=== PATIENT | male | born 1940 | race Asian ===

== ENCOUNTER 2019-03-27 14:28 | Outpatient (CLI) | payer MEDICARE | END 2019-03-27 14:29 | disposition home or self-care (01) | LOC: ULT 14:28 | PROVIDERS: ATTEND Family Medicine | DX: R06.02 Shortness of breath (principal); I08.1 Rheumatic disorders of both mitral and tricuspid valves | CPT/HCPCS: 93306 ==

== ENCOUNTER 2019-04-17 11:01 | Outpatient (CLI) | payer MEDICARE ==
--- NOTE | 2019-04-17 12:11 | ULT ---
BILATERAL RENAL ULTRASOUND: Date: 04/17/2019 HISTORY: Abnormal renal function. Tongue cancer. FINDINGS: The right kidney measures 9.2 cm in length and the left kidney measures 10.4 cm in length. No hydrone phrosis is seen. There is a 1.6 cm cyst in the medial aspect of the left mid kidney. The urinary blad mary is unremarkable. The pre-void bladder volume is 74 mL. No shadowing calculi seen. IMPRESSION: Left renal cyst. No evidence of obstructive uropathy. POS: [facility]
== END 2019-04-17 11:02 | disposition home or self-care (01) ==
LOC: SCSULT 11:01
PROVIDERS: ATTEND Internal Medicine Nephrology
DX: N18.3 Chronic kidney disease, stage 3 (moderate) (principal); N28.1 Cyst of kidney, acquired
CPT/HCPCS: 76770